=== PATIENT | male | born 1990 | race American Indian/Alaskan Native ===

== ENCOUNTER 2018-06-27 14:37 | Outpatient (CLI) | payer OTHER | END 2018-06-27 14:42 | disposition home or self-care (01) | LOC: TOM 14:37 | DX: M54.16 Radiculopathy, lumbar region (principal); M62.81 Muscle weakness (generalized) ==

== ENCOUNTER 2019-03-08 14:28 | Emergency (ER) | payer OTHER ==
[~2019-03-08] VITALS: Ht 185.4 cm; Wt 90.7 kg
== END 2019-03-08 19:20 | disposition home or self-care (01) ==
LOC: ER
DX: S30.0XXA Contusion of lower back and pelvis, initial encounter (principal); S70.01XA Contusion of right hip, initial encounter; M51.27 Other intervertebral disc displacement, lumbosacral region; W22.8XXA Striking against or struck by other objects, initial encounter; Y93.89 Activity, other specified; Y92.89 Other specified places as the place of occurrence of the external cause; Y99.8 Other external cause status